=== PATIENT | male | born 1995 | race Asian ===

== ENCOUNTER 2021-04-02 19:46 | Emergency (ER) | payer BC, SELFPAY ==
--- NOTE | ~2021-04-02 | XR_ITS ---
EXAMINATION: XR CHEST CLINICAL INFORMATION: Cough and shortness of breath. COMPARISON: None TECHNIQUE: PA view of the chest was obtained. FINDINGS: Normal appearance of the cardiomediastinal silhouette. Clear lungs. No pleural effusions or pneumothorax. No acute osseous findings. XR/XR chest 1V IMPRESSION: No acute cardiopulmonary findings.
[2021-04-02 20:38] VITALS: BP 135/93; PULSE 93; RESP 19; TEMP 36.7; O2SAT 100; BMI 29.7
[2021-04-02 21:27] LABS: Influenza A PCR NEGATIVE (Negative); Influenza B PCR NEGATIVE (Negative); Resp Syncy Virus RNA Qual PCR NEGATIVE (Negative); SARS COV2 PCR INHOUSE NEGATIVE (Negative)
--- NOTE | 2021-04-02 23:09 | ED.URI ---
HPI - URI/Sore Throat General Chief Complaint: Upper Respiratory Symptoms Stated Complaint: asthma Time Seen by Provider: 04/02/21 23:08 History of Present Illness HPI Narrative: Patient is 25-year-old male presents today with having coughing upper respiratory symptoms. Been on steroids for 3 days. Tested for COVID in the past. Had his coronavirus vaccine and also booster. Never been hospitalized for asthma in the past. No chest pain no diaphoresis. Patient from home. patient use albuterol and symptom improved dramatically. Related Data Allergies Allergy/AdvReac Type Severity Reaction Status Date / Time No Known Allergies Allergy Verified 04/02/21 20:37 [No Known Allergies*] Review of Systems Review of Systems: Positive shortness of breath positive coughing upper respiratory symptoms all system reviewed otherwise negative [facility] Past Medical History Attestation statement: The following information was validated with the patient. Medical History Asthma Bipolar 2 disorder H/O multiple concussions Sleep apnea Social History Social History Advance Directives: No Advance Directives Information Provided: Yes Physical Exam Vital Signs: Vital Signs: Last Vital Signs Temp 98.0 F 04/02/21 20:38 Pulse 93 04/02/21 20:38 Resp 19 04/02/21 20:38 BP 135/93 H 04/02/21 20:38 Pulse Ox 100 04/02/21 20:38 BMI result Body Mass Index 29.7 Appearance: Alert. Oriented X3. No acute distress. Eyes: Pupils equal, round and reactive to light. ENT: Pharynx normal. Neck: Normal inspection. Neck supple. No lymph nodes noted. No crepitus CVS: Normal heart rate and rhythm. Pulses normal. Normal S1 and S2 Respiratory: No respiratory distress. Breath sounds normal. No Wheezing. No rales Abdomen: Soft and nontender. No rigidity. No distention. good BS x4 Skin: Skin warm and dry. Normal skin color. Normal skin turgor. Extremities: No lower extremity edema. Neurovascular intact to all extremities. No Lacerations. No Rash Neuro: Oriented X 3. No motor deficit. No sensory deficit. Moving all extermities. No slurred speech MDM - URI/Sore Throat MDM Narrative Medical decision making narrative: Patient's lungs are clear at this point. O2 sat is normal. No distress COVID test negative. Will discharge patient home continue current therapy. In stable condition. Lab Data Labs: Lab Results 04/02/21 Range/Units 20:46 Influenza Type A (PCR) NEGATIVE (Negative) Influenza Type B (PCR) NEGATIVE (Negative) RSV RNA Qual (PCR) NEGATIVE (Negative) SARS-CoV-2 RNA (RT-PCR) NEGATIVE (Negative) Discharge Plan Discharge Clinical Impression: Upper respiratory infection Patient Disposition: Home, Self-Care Instructions: Asthma (ED), Acute Bronchitis (ED) Referrals: Alka Amin NP [Primary Care Provider] - 2 days
== END 2021-04-02 23:25 | disposition home or self-care (01) ==
PROVIDERS: Emergency Provider Emergency Medicine Emergency Medical Services; PCP Nurse Practitioner Family
DX: J06.9 Acute upper respiratory infection, unspecified (principal); J45.909 Unspecified asthma, uncomplicated; Z20.822 Contact with and (suspected) exposure to COVID-19
CPT/HCPCS: 0241U; 36415; 71045; 99283